=== PATIENT | male | born 1980 | race Caucasian/White ===

== ENCOUNTER → 2022-07-15 | Outpatient (CLI) | payer OTHER ==
[~2022-07-15] MED LIST: ADDE20CA3 PO; ELIQ5TAB PO; FURO20TA2 PO; GABA-283 PO; K-TA10TA2 PO; LAMO100T80 PO; LANTINJ4 SC; LOPR1TAB7 PO; METF500T13 PO; MULT-4 PO; NOVOINJ3 SC; PRAZ1CAP PO; VITA200020 PO; VITA500C24 PO
== END ==
LOC: M LABSMTC 09:55
PROVIDERS: ATTEND Anesthesiology
DX: Z01.818 Encounter for other preprocedural examination (principal); Z11.52 Encounter for screening for COVID-19

== ENCOUNTER 2022-07-18 10:54 | Day surgery (SDC) | payer OTHER ==
[~2022-07-18] VITALS: Ht 182.9 cm; Wt 147.9 kg
[~2022-07-18 10:54] MED LIST changes: +NS 1,000 ML IV ONE
[2022-07-18 11:01] VITALS: BP 127/80
== END 2022-07-18 12:22 | disposition home or self-care (01) ==
LOC: M OPP 10:54
PROVIDERS: ATTEND Internal Medicine Gastroenterology
DX: K62.5 Hemorrhage of anus and rectum (principal); R19.7 Diarrhea, unspecified; Z53.8 Procedure and treatment not carried out for other reasons

== ENCOUNTER → 2022-08-01 | Outpatient (CLI) | payer OTHER ==
[~2022-08-01] MED LIST changes: -NS 1,000 ML IV ONE
[2022-08-01 16:10] LABS: BLOOD UREA NITROGEN 10 MG/DL (7-18); GLOMERULAR FILTRATION RATE > 60.0 (>60)
== END ==
LOC: M LAB 14:57
PROVIDERS: ATTEND Podiatrist Foot & Ankle Surgery
DX: Z01.89 Encounter for other specified special examinations (principal)

== ENCOUNTER → 2022-08-06 | Outpatient (CLI) | payer OTHER | LOC: M RAD 14:25 | PROVIDERS: ATTEND Physician Assistant Medical | DX: I71.40 Abdominal aortic aneurysm, without rupture, unspecified (principal) ==

== ENCOUNTER → 2022-08-06 | Outpatient (CLI) | payer OTHER ==
[~2022-08-06] MED LIST changes: +PROHANCE 279.3MG/ML 15ML VIAL As Ordered ONE; +PROHANCE 279.3MG/ML 5ML VIAL As Ordered ONE
== END ==
LOC: M RAD 15:00
PROVIDERS: ATTEND Podiatrist Foot & Ankle Surgery
DX: R22.42 Localized swelling, mass and lump, left lower limb (principal)
CPT/HCPCS: 73720; A9576

== ENCOUNTER 2023-02-13 07:43 | Day surgery (SDC) | payer OTHER ==
[~2023-02-13] VITALS: Ht 182.9 cm; Wt 150.5 kg
[~2023-02-13 07:43] MED LIST changes: +NS 1,000 ML IV ONE; -PROHANCE 279.3MG/ML 15ML VIAL As Ordered ONE; -PROHANCE 279.3MG/ML 5ML VIAL As Ordered ONE; +VITMTA PO
[2023-02-13] MEDS ORDERED: LIDOCAINE 2% 100MG/5ML SDV (FOR ANES.) As Ordered ONE (08:47)
[2023-02-13] MEDS ORDERED: propofoL 200 MG/20 ML VIAL As Ordered ONE (08:47)
[2023-02-13 09:20] VITALS: BP 102/64
== END 2023-02-13 10:10 | disposition home or self-care (01) ==
LOC: M OPP 07:43
PROVIDERS: ATTEND Internal Medicine Gastroenterology
DX: K64.0 First degree hemorrhoids (principal); K62.5 Hemorrhage of anus and rectum; R19.7 Diarrhea, unspecified; K62.1 Rectal polyp